=== PATIENT | male | born 2000 | race American Indian/Alaskan Native ===

== ENCOUNTER 2020-06-14 14:27 | Emergency (ER) | payer MEDICAID ==
[2020-06-14 17:01] LABS: Basophils % (Auto) 0.6 % (0.0-1.8); Eosinophils # (Auto) 0.1 K/mm3 (0.0-0.4); Eosinophils % (Auto) 0.8 % (0.0-4.3); Hematocrit 44.3 % (35.5-45.6); Hemoglobin 14.2 gm/dl (11.8-15.2); Lymphocytes # (Auto) 1.8 K/mm3 (1.2-5.4); Lymphocytes % (Auto) 29.4 % (13.4-35.0); Mean Corpuscular HGB Conc 32 % (32-34); Mean Corpuscular Volume 92 fl (84-94); Monocytes # (Auto) 0.4 K/mm3 (0.0-0.8); Platelet Count 284 K/mm3 (140-440); Red Blood Count 4.84 M/mm3 (3.65-5.03); Red Cell Distribution Width 14.4 % (13.2-15.2)
[2020-06-14 17:18] LABS: BUN/Creatinine Ratio 19; Blood Urea Nitrogen 17 mg/dL (9-20); Calcium 9.7 mg/dL (8.4-10.2); Hemolysis Index 7
--- NOTE | 2020-06-14 18:02 | Emergency Department Report ---
ED Psych HPI - General Chief Complaint: Medical Clearance Stated Complaint: AMS Time Seen by Provider: 06/14/20 16:27 Source: patient Mode of arrival: Ambulatory Limitations: Other (Patient refusing to speak ) - History of Present Illness Initial Comments: 20-year-old male with a past medical history of ADHD is brought in by family for nonverbal for the past 2 months which has "gotten progressively worse". Patient would not answer any of my questions and will not make eye contact. Patient does not even nod in response to yes or no questions - Related Data Previous Rx's Medication Instructions Recorded Last Taken Type risperiDONE [Risperdal] 2 mg PO BID 30 Days #60 tablet 06/19/20 Unknown Rx Allergies Allergy/AdvReac Type Severity Reaction Status Date / Time No Known Allergies Allergy Verified 11/22/13 16:50 ED Review of Systems ROS: Stated complaint: AMS Other details as noted in HPI Comment: All other systems reviewed and negative ED Past Medical Hx - Past Medical History Previous Medical History?: Yes Additional medical history: ADHD - Surgical History Past Surgical History?: Yes Additional Surgical History: Surgery on lymph node in neck - Social History Smoking Status: Unknown if ever smoked Substance Use Type: None - Medications Home Medications: Home Medications Medication Instructions Recorded Confirmed Last Taken Type risperiDONE [Risperdal] 2 mg PO BID 30 Days #60 tablet 06/19/20 Unknown Rx ED Physical Exam - General Limitations: No Limitations - Other Other exam information: General: No acute distress Head: Atraumatic Eyes: normal appearance ENT: Moist mucous membranes Neck: Normal appearance, no midline tenderness Chest: Clear to auscultation bilaterally CV: Regular rate and rhythm Abdomen: Soft, normal bowel sounds, nontender, nondistended, no rebound or guarding Back: Normal inspection Extremity: Normal inspection, full range of motion Neuro: Alert O x 3, no facial asymmetry, refusing to speak no gross motor sensory deficit Psych: Cooperative, poor eye contact Skin: No rash ED Course Vital Signs 06/14/20 06/14/20 06/14/20 15:15 16:03 19:30 Temperature 98.8 F Pulse Rate 71 Respiratory 16 16 18 Rate Blood Pressure 140/92 Blood Pressure [Left] O2 Sat by Pulse 100 100 Oximetry 06/14/20 06/15/20 06/15/20 20:20 02:18 16:00 Temperature 97.9 F Pulse Rate 75 81 96 H Respiratory 16 18 20 Rate Blood Pressure Blood Pressure 150/104 138/88 142/89 [Left] O2 Sat by Pulse 100 100 98 Oximetry 06/15/20 06/16/20 06/16/20 19:15 02:10 20:00 Temperature 98.9 F 97.5 F L Pulse Rate 97 H 88 Respiratory 18 16 18 Rate Blood Pressure Blood Pressure 134/78 126/74 [Left] O2 Sat by Pulse 98 98 95 Oximetry 06/16/20 06/16/20 06/16/20 20:15 21:30 21:45 Temperature 98.5 F Pulse Rate 131 H 104 H 94 H Respiratory 18 20 19 Rate Blood Pressure 132/103 142/99 Blood Pressure 151/106 [Left] O2 Sat by Pulse 100 Oximetry 06/16/20 06/16/20 06/16/20 22:00 22:16 22:30 Temperature Pulse Rate 93 H 89 100 H Respiratory 18 16 16 Rate Blood Pressure 134/90 134/90 134/90 Blood Pressure [Left] O2 Sat by Pulse 99 100 Oximetry 06/16/20 06/16/20 06/16/20 22:32 22:45 22:58 Temperature Pulse Rate 88 93 H 92 H Respiratory 17 13 19 Rate Blood Pressure 141/90 Blood Pressure [Left] O2 Sat by Pulse 100 100 100 Oximetry 06/16/20 06/16/20 06/16/20 23:00 23:05 23:15 Temperature Pulse Rate 90 93 H 89 Respiratory 17 18 17 Rate Blood Pressure 129/95 129/95 125/93 Blood Pressure [Left] O2 Sat by Pulse 100 100 100 Oximetry 06/16/20 06/16/20 06/17/20 23:30 23:45 00:00 Temperature Pulse Rate 84 83 103 H Respiratory 18 17 15 Rate Blood Pressure 134/91 145/106 145/106 Blood Pressure [Left] O2 Sat by Pulse 100 100 100 Oximetry 06/17/20 06/17/20 06/17/20 00:15 00:30 00:46 Temperature Pulse Rate 84 91 H 75 Respiratory 15 17 13 Rate Blood Pressure 138/90 134/99 168/97 Blood Pressure [Left] O2 Sat by Pulse 100 97 100 Oximetry 06/17/20 06/17/20 06/17/20 01:00 01:15 01:30 Temperature Pulse Rate 81 77 86 Respiratory 15 16 17 Rate Blood Pressure 131/89 108/57 139/88 Blood Pressure [Left] O2 Sat by Pulse 100 100 100 Oximetry 06/17/20 06/17/20 06/17/20 01:45 02:00 02:15 Temperature Pulse Rate 79 79 78 Respiratory 17 17 15 Rate Blood Pressure 124/85 121/79 123/80 Blood Pressure [Left] O2 Sat by Pulse 100 100 100 Oximetry 06/17/20 06/17/20 06/17/20 02:30 02:45 02:54 Temperature 97.5 F L Pulse Rate 77 83 100 H Respiratory 16 10 L 16 Rate Blood Pressure 122/83 140/100 Blood Pressure 130/70 [Left] O2 Sat by Pulse 100 100 100 Oximetry 06/17/20 06/17/20 06/17/20 08:50 08:52 10:22 Temperature 97.3 F L Pulse Rate 87 Respiratory 19 18 Rate Blood Pressure Blood Pressure 147/100 [Left] O2 Sat by Pulse 99 98 Oximetry 06/17/20 06/17/20 06/17/20 13:21 17:42 19:24 Temperature 98.8 F 97.5 F L 98 F Pulse Rate 88 109 H 78 Respiratory 16 19 16 Rate Blood Pressure Blood Pressure 138/96 98/70 100/72 [Left] O2 Sat by Pulse 99 96 97 Oximetry 06/18/20 06/18/20 06/18/20 05:50 09:31 19:50 Temperature 98.2 F 98.8 F 98.1 F Pulse Rate 76 97 H 98 H Respiratory 14 19 20 Rate Blood Pressure Blood Pressure 100/76 138/101 144/88 [Left] O2 Sat by Pulse 99 97 Oximetry 06/19/20 06/19/20 01:10 09:20 Temperature 98.8 F 97.3 F L Pulse Rate 84 85 Respiratory 20 18 Rate Blood Pressure Blood Pressure 130/94 146/98 [Left] O2 Sat by Pulse 99 100 Oximetry - Reevaluation(s) Reevaluation #1: 06/15/20 00:55 Urine collection pending ED Medical Decision Making - Lab Data Result diagrams: 06/16/20 22:33 06/16/20 22:33 Lab Results 06/14/20 06/14/20 06/14/20 Range/Units 16:38 16:38 16:38 WBC (4.5-11.0) K/mm3 RBC (3.65-5.03) M/mm3 Hgb (11.8-15.2) gm/dl Hct (35.5-45.6) % MCV (84-94) fl MCH (28-32) pg MCHC (32-34) % RDW (13.2-15.2) % Plt Count (140-440) K/mm3 Lymph % (Auto) (13.4-35.0) % Wright % (Auto) (0.0-7.3) % Eos % (Auto) (0.0-4.3) % Baso % (Auto) (0.0-1.8) % Lymph # (Auto) (1.2-5.4) K/mm3 Wright # (Auto) (0.0-0.8) K/mm3 Eos # (Auto) (0.0-0.4) K/mm3 Baso # (Auto) (0.0-0.1) K/mm3 Seg Neutrophils % (40.0-70.0) % Seg Neutrophils # (1.8-7.7) K/mm3 Sodium 138 (137-145) mmol/L Potassium 4.4 (3.6-5.0) mmol/L Chloride 103.3 (98-107) mmol/L Carbon Dioxide 25 (22-30) mmol/L Anion Gap 14 mmol/L BUN 17 (9-20) mg/dL Creatinine 0.9 (0.8-1.3) mg/dL Estimated GFR > 60 ml/min BUN/Creatinine Ratio 19 % Glucose 88 (75-100) mg/dL Calcium 9.7 (8.4-10.2) mg/dL Salicylates < 0.3 L (2.8-20.0) mg/dL Acetaminophen 5.0 L (10.0-30.0) ug/mL Plasma/Serum Alcohol (0-0.07) % 06/14/20 06/14/20 Range/Units 16:38 16:38 WBC 6.2 (4.5-11.0) K/mm3 RBC 4.84 (3.65-5.03) M/mm3 Hgb 14.2 (11.8-15.2) gm/dl Hct 44.3 (35.5-45.6) % MCV 92 (84-94) fl MCH 29 (28-32) pg MCHC 32 (32-34) % RDW 14.4 (13.2-15.2) % Plt Count 284 (140-440) K/mm3 Lymph % (Auto) 29.4 (13.4-35.0) % Wright % (Auto) 7.0 (0.0-7.3) % Eos % (Auto) 0.8 (0.0-4.3) % Baso % (Auto) 0.6 (0.0-1.8) % Lymph # (Auto) 1.8 (1.2-5.4) K/mm3 Wright # (Auto) 0.4 (0.0-0.8) K/mm3 Eos # (Auto) 0.1 (0.0-0.4) K/mm3 Baso # (Auto) 0.0 (0.0-0.1) K/mm3 Seg Neutrophils % 62.2 (40.0-70.0) % Seg Neutrophils # 3.8 (1.8-7.7) K/mm3 Sodium (137-145) mmol/L Potassium (3.6-5.0) mmol/L Chloride (98-107) mmol/L Carbon Dioxide (22-30) mmol/L Anion Gap mmol/L BUN (9-20) mg/dL Creatinine (0.8-1.3) mg/dL Estimated GFR ml/min BUN/Creatinine Ratio % Glucose (75-100) mg/dL Calcium (8.4-10.2) mg/dL Salicylates (2.8-20.0) mg/dL Acetaminophen (10.0-30.0) ug/mL Plasma/Serum Alcohol < 0.01 (0-0.07) % - Radiology Data Radiology results: report reviewed CT neck wo con INDICATION / CLINICAL INFORMATION: 20 years Male; NOT SPEAKING, DROOLING, Psych. TECHNIQUE: Contiguous thin cut axial images obtained through the neck. Sagittal and coronal reconstructions performed by the technologist. All CT scans at this location are performed using CT dose reduction for ALARA by means of automated exposure control. COMPARISON: None available. FINDINGS: Very little subcutaneous or deep tissue fat is seen, making visualization of structures without IV contrast difficult. MUCOSAL SPACE: Prominent soft tissue is seen in the roof the nasopharynx, presumably related to reactive adenoidal tissue. Please clinically correlate. Otherwise, the nasopharynx, oropharynx and vallecula, oral cavity and floor of mouth, hypopharynx, and larynx are grossly normal. The epiglottis is appearance. LYMPH NODES: No significant adenopathy appreciated. Presumed calcified lymph node in the left retropharyngeal space nasal/oropharyngeal region. Similar, smaller finding seen on the right. SALIVARY GLANDS: Parotid, submandibular, and visualized sublingual glands are within normal limits. There is no evidence of sialolith. THYROID GLAND: Unremarkable. PARANASAL SINUSES: Small mucous cyst is seen in the left sphenoid sinus. SPINE: No significant abnormality of the cervical spine appreciated. VASCULAR STRUCTURES: Vascular structures are grossly normal in appearance. ADDITIONAL FINDINGS: Surrounding soft tissues are otherwise grossly normal. IMPRESSION: 1. No definitive cause for patient's pathology appreciated. - Medical Decision Making 20-year male presents to the hospital refusing to speak, poor eye contact, intermittent drooling. Labs unremarkable. CT neck does not show any acute pathology. Suspect that symptoms are related to psychosis and underlying psychiatric disorder. 1013 has been signed. 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 Critical Care Time: No Critical care attestation.: If time is entered above; I have spent that time in minutes in the direct care of this critically ill patient, excluding procedure time. ED Disposition Clinical Impression: Medical clearance for psychiatric admission, Schizophrenia Disposition: [id number] PSY HOSP/PSY UNIT Is pt being admited?: No Condition: Stable Additional Instructions: Outpatient [facility] Behavioral Health Resources: [facility] ([facility]) [address] [place] [address] / Wednesday thru Wednesday - 8am - 5pm [facility] Address: [address] [place] [address] Wednesday thru Wednesday- 7am-2pm [facility] Address: [address] [place] [address] Wednesday thru Wednesday: 8:30AM-5PM CRISIS RESOURCES [place] Crisis Line: Suicide Prevention Line: Crisis Text Line: Text START to [phone] Emergency: 911 In case of an emergency, please contact the following numbers: [place] Crisis and Access Line: Number: Crisis Text Line: (Text START) Number: [phone] Suicide Prevention Line: Number: Emergency Number: 911 SUBSTANCE ABUSE PROGRAMS: [facility]: Location: [place], [place] [facility] Address: [address] [place] [address] [facility]: Address: [address] [facility] [place] [address] [facility]: Address: [address] [place] [address] [facility]: Address: [address] [place] [address] [facility] Address: [address] [place] [address]. Please contact above numbers to attempt placement into free based program. Medicaid Programs: [facility]: Address: [address] [place] [address] [facility]: Address: [address] [place] [id number] Prescriptions: risperiDONE [Risperdal] 2 mg PO BID 30 Days #60 tablet Referrals: PRIMARY CARE, [Primary Care Provider] - 3-5 Days
[2020-06-14] MEDS ORDERED: ZIPRASIDONE MESYLATE 20 MG VIAL IM ONE (19:12)
--- NOTE | 2020-06-15 00:40 | Cat Scan Report ---
CT neck wo con INDICATION / CLINICAL INFORMATION: 20 years Male; NOT SPEAKING, DROOLING, Psych. TECHNIQUE: Contiguous thin cut axial images obtained through the neck. Sagittal and coronal reconstructions perf ormed by the technologist. All CT scans at this location are performed using CT dose reduction for [place] SUMMER by means of automated exposure control. COMPARISON: None available. FINDINGS: Very little subcutaneous or deep tissue fat is seen, making visualization of structures wit hout IV contrast difficult. MUCOSAL SPACE: Prominent soft tissue is seen in the roof the nasopharynx, presumably related to react slava adenoidal tissue. Please clinically correlate. Otherwise, the nasopharynx, oropharynx and vallec kya, oral cavity and floor of mouth, hypopharynx, and larynx are grossly normal. The epiglottis is ap pearance. LYMPH NODES: No significant adenopathy appreciated. Presumed calcified lymph node in the left retroph aryngeal space nasal/oropharyngeal region. Similar, smaller finding seen on the right. SALIVARY GLANDS: Parotid, submandibular, and visualized sublingual glands are within normal limits. T here is no evidence of sialolith. THYROID GLAND: Unremarkable. PARANASAL SINUSES: Small mucous cyst is seen in the left sphenoid sinus. SPINE: No significant abnormality of the cervical spine appreciated. VASCULAR STRUCTURES: Vascular structures are grossly normal in appearance. ADDITIONAL FINDINGS: Surrounding soft tissues are otherwise grossly normal. IMPRESSION: 1. No definitive cause for patient's pathology appreciated. Signer Name: Yong Mcgowan MD, III Signed: 06/15/2020 12:35 AM Workstation Name: [employer]
--- NOTE | 2020-06-15 10:29 | Consultation ---
History of Present Illness - Reason for Consult Consult date: 06/15/20 Reason for consult: MHE Requesting physician: TATA GARCIA - History of Present Psychiatric Illness Per ED Provider: 20-year-old male with a past medical history of ADHD is brought in by family for nonverbal for the past 2 months which has "gotten progressively worse". Patient would not answer any of my questions and will not make eye contact. Patient does not even nod in response to yes or no questions Per MHA: Received mental health consult order from Dr. Garcia to assess pt. Dr. Garcia placed pt on 1013 on 06/14/2020 17:48. Unable to complete mental health assessment with pt as pt is non verbal; noted by nurse to, "have drooled all over self and the floor." Noted in Dr. Garcia's report that the pt , "does not even nod in response to yes or no questions." Attempted to call pt's mother listed under emergency contact in chart for collateral information; no answer; voicemail is full. Per the report from EMS, pt only medical history is ADHD, but pt began to be non verbal 2 months ago. Attempted to ask the pt his name, his mother's name and other basic questions. 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 PSYCH HPI Patient is a 20-year-old -[place] male who was brought in by family due to progressively worsening behavior, flat affect and nonverbal status. Family report patient has history of ADHD. Patient was seen in room 16, attempts to talk to patient was negative, patient was flat, non mobile and stared constantly into the ceiling. REVIEW OF SYSTEMS ROS cannot be reliably obtained from the patient due to his current status MENTAL STATUS EXAMINATION General Appearance and Behavior: Age appropriate, good hygiene, wearing appropriate clothes, no eye contact, uncooperative Cooperation: Withdrawn Psychomotor Behavior: unremarkable and within normal limits Mood: n/a Affect and affective range: Flat Thought Process: N/A Thought Content: N/A Speech: n/a Intellectual Functioning: N/A Suicidal Ideation: N/A l Homicidal Ideation: N/A Impulse Control: Impaired Insight and Judgment: Impaired Memory: N/A Attention: n/a Orientation: Alert Diagnoses: Assessment and Plan - Psychiatric problem (1) 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 PSYCHOTHERAPY: Supportive psychotherapy provided MEDICAL: Per primary team DELIRIUM PRECAUTIONS: Please re-orient patient frequently, keep lights on during the day, and minimize benzodiazepines and opiates as these medications could worsen patient's confusion. 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 Please contact with any questions and/or concerns. Medications and Allergies Allergies Allergy/AdvReac Type Severity Reaction Status Date / Time No Known Allergies Allergy Verified 11/22/13 16:50 Home Medications Medication Instructions Recorded Confirmed Last Taken Type No Known Home Medications [No 11/20/13 11/20/13 Unknown History Reported Home Medications] Mental Status Exam - Vital signs Last Vital Signs Temp 97.9 F 06/15/20 02:18 Pulse 81 06/15/20 02:18 Resp 18 06/15/20 02:18 BP 138/88 06/15/20 02:18 Pulse Ox 100 06/15/20 02:18 Results Result Diagrams: 06/14/20 16:38 06/14/20 16:38 Abnormal lab results 06/14/20 06/14/20 Range/Units 16:38 16:38 Salicylates < 0.3 L (2.8-20.0) mg/dL Acetaminophen 5.0 L (10.0-30.0) ug/mL All other labs normal. 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
[2020-06-15] MEDS: LORazepam 2 MG/ML VIAL IM SCH ×4 (13:30→22:36)
[2020-06-15 16:02] LABS: Amphetamine Screen,Urine Negative; Benzodiazepines Screen,Urine Negative; Cocaine Screen,Urine Negative; Methadone Screen,Urine Negative; Opiate Screen,Urine Negative
[2020-06-15 16:14] LABS: Cannabinoid Screen,Urine Positive
[2020-06-15 16:18] LABS: Bilirubin,Urine NEG (Negative); Blood,Urine NEG (Negative); Color,Urine Yellow (Yellow); Mucus,Urine 3+ /HPF; Protein,Urine <15 mg/dL mg/dL (Negative); Urobilinogen,Urine < 2.0 mg/dL (<2.0)
[2020-06-15] MEDS ORDERED: ZIPRASIDONE MESYLATE 20 MG VIAL IM SCH (22:00)
--- NOTE | 2020-06-16 10:47 | Progress Note ---
Subjective - Reason for Consult Consult date: 06/16/20 Reason for consult: MHE Requesting physician: TATA BROWN - Chief Complaint Chief complaint: ED Nurse: [id number] As I entered the room, pt sat up and asked to go to restroom, pt escorted to restroom and security notified of stand by assist, as pt was being escorted back to room, pt ran out of back bay door, staff unable to catch him, [employer] notified at this time. Psych Progress Patient in room this AM, not communicating, remains flat, mute and withdrawn to self. REVIEW OF SYSTEMS ROS cannot be reliably obtained from the patient due to his current status MENTAL STATUS EXAMINATION General Appearance and Behavior: Age appropriate, good hygiene, wearing appropriate clothes, no eye contact, uncooperative Cooperation: Withdrawn Psychomotor Behavior: unremarkable and within normal limits Mood: n/a Affect and affective range: Flat Thought Process: N/A Thought Content: N/A Speech: n/a Intellectual Functioning: N/A Suicidal Ideation: N/A l Homicidal Ideation: N/A Impulse Control: Impaired Insight and Judgment: Impaired Memory: N/A Attention: n/a Orientation: Alert Diagnoses: Assessment and Plan - Psychiatric problem (1) 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 PSYCHOTHERAPY: Supportive psychotherapy provided MEDICAL: Per primary team DELIRIUM PRECAUTIONS: Please re-orient patient frequently, keep lights on during the day, and minimize benzodiazepines and opiates as these medications could worsen patient's confusion. 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 Please contact with any questions and/or concerns. 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
[2020-06-16] MEDS: LORazepam 2 MG/ML VIAL IM SCH ×3 (12:18→20:51)
[2020-06-16] MEDS ORDERED: SODIUM CHLORIDE 0.9% 1000 ML 2,000 ML IV ONE (20:54)
[2020-06-16] MEDS ORDERED: diphenhydrAMINE 50 MG/ML VIAL IV ONE (20:54)
[2020-06-16] MEDS ORDERED: LORazepam 2 MG/ML VIAL IV STA (20:54)
--- NOTE | 2020-06-16 20:55 | Event Note ---
Date: 06/16/20 The patient was evaluated in the emergency department for symptoms described in the history of present illness. He/she was evaluated in the context of the global COVID-19 pandemic, which necessitated consideration that the patient might be at risk for infection with the virus that causes COVID-19. Institutional protocols and algorithms that pertain to the evaluation of patients at risk for COVID-19 are in a state of rapid change based on information released by regulatory bodies including the CDC and federal and state organizations. These policies and algorithms were followed during the patient's care in the emergency department. Please note that these policies, procedures and recommendations changed on a rapid basis. Please note this patient was not signed out to myself. The nursing team brought this patient to my attention because he was tachycardic. I went to evaluate the patient, with complete personal protective equipment on. He is awake, breathing spontaneously, but appears to be acutely psychotic. He does not appear to be in a significant respiratory distress. He was given a trial of ambulation, heart rate remained tachycardic, O2 sat 93 to 98%. Currently resting comfortably, saturating 100% on room air. Heart rate now 100 bpm. Patient appears to be acutely psychotic, and therefore does not exhibit decision-making capacity. I counseled the patient that we would recommend x-ray of the chest, and appropriate laboratory studies. The patient was not agreeable. Given that he does not have decision-making capacity, and requires further evaluation, he will be placed on a classroom monitor, x-ray of the chest, laboratory studies will be obtained, he will be given IV fluids, and we will obtain appropriate laboratory studies. At this point time, EKG shows a sinus rhythm, tachycardia, 103 bpm, QTC 431 ms, normal axis, high left ventricular voltage, atrial enlargement. Not a STEMI. S1, S2, tachycardic. Breath sounds clear to auscultation bilaterally. Abdomen soft and benign, without any rebound, guarding or peritoneal signs. Head normocephalic atraumatic. There is no stridor. There are no meningeal signs. There is no facial droop. Walking with a steady gait. 2+ pulses noted in the bilateral upper and lower extremities. There is no palpable cord. negative Homans sign. Muscular compartments are soft. The pelvis is stable. 5 strength in 4 extremities. No obvious facial droop. Extractor movements are intact. Detailed neurologic examination not possible secondary to acute psych osis. 06/16/2020. 11: 50 Pm Patient resting comfortably in his stretcher and in no acute distress. Laboratory studies reviewed and appreciated. X-ray of the chest unremarkable. Elevated CK will decrease with rest, and with IV fluids. Saturating at 99/100% on room air. No desaturations noted. Covid test ordered. We will maintain isolation precautions. However, patient does not appear to have an emergent medical condition present at this time which would require hospitalization. We will maintain isolation precautions pending Covid testing. Vital Signs 06/14/20 06/14/20 06/14/20 15:15 16:03 19:30 Temperature 98.8 F Pulse Rate 71 Respiratory 16 16 18 Rate Blood Pressure 140/92 Blood Pressure [Left] O2 Sat by Pulse 100 100 Oximetry 06/14/20 06/15/20 06/15/20 20:20 02:18 16:00 Temperature 97.9 F Pulse Rate 75 81 96 H Respiratory 16 18 20 Rate Blood Pressure Blood Pressure 150/104 138/88 142/89 [Left] O2 Sat by Pulse 100 100 98 Oximetry 06/15/20 06/16/20 06/16/20 19:15 02:10 20:00 Temperature 98.9 F 97.5 F L Pulse Rate 97 H 88 Respiratory 18 16 18 Rate Blood Pressure Blood Pressure 134/78 126/74 [Left] O2 Sat by Pulse 98 98 95 Oximetry 06/16/20 06/16/20 06/16/20 20:15 21:30 21:45 Temperature 98.5 F Pulse Rate 131 H 104 H 94 H Respiratory 18 20 19 Rate Blood Pressure 132/103 142/99 Blood Pressure 151/106 [Left] O2 Sat by Pulse 100 Oximetry 06/16/20 06/16/20 06/16/20 22:00 22:16 22:30 Temperature Pulse Rate 93 H 89 100 H Respiratory 18 16 16 Rate Blood Pressure 134/90 134/90 134/90 Blood Pressure [Left] O2 Sat by Pulse 99 100 Oximetry 06/16/20 06/16/20 22:45 23:00 Temperature Pulse Rate 93 H 90 Respiratory 13 17 Rate Blood Pressure 141/90 129/95 Blood Pressure [Left] O2 Sat by Pulse 100 100 Oximetry Lab Results 12/11/20 12/11/20 12/11/20 Range/Units 16:38 16:38 16:38 WBC (4.5-11.0) K/mm3 RBC (3.65-5.03) M/mm3 Hgb (11.8-15.2) gm/dl Hct (35.5-45.6) % MCV (84-94) fl MCH (28-32) pg MCHC (32-34) % RDW (13.2-15.2) % Plt Count (140-440) K/mm3 Lymph % (Auto) (13.4-35.0) % [place] % (Auto) (0.0-7.3) % Eos % (Auto) (0.0-4.3) % Baso % (Auto) (0.0-1.8) % Lymph # (Auto) (1.2-5.4) K/mm3 [place] # (Auto) (0.0-0.8) K/mm3 Eos # (Auto) (0.0-0.4) K/mm3 Baso # (Auto) (0.0-0.1) K/mm3 Seg Neutrophils % (40.0-70.0) % Seg Neutrophils # (1.8-7.7) K/mm3 PT (12.2-14.9) Sec. INR (0.87-1.13) Sodium 138 (137-145) mmol/L Potassium 4.4 (3.6-5.0) mmol/L Chloride 103.3 (98-107) mmol/L Carbon Dioxide 25 (22-30) mmol/L Anion Gap 14 mmol/L BUN 17 (9-20) mg/dL Creatinine 0.9 (0.8-1.3) mg/dL Estimated GFR > 60 ml/min BUN/Creatinine Ratio 19 % Glucose 88 (75-100) mg/dL Calcium 9.7 (8.4-10.2) mg/dL Magnesium (1.7-2.3) mg/dL Total Creatine Kinase (55-170) units/L Urine Color (Yellow) Urine Turbidity (Clear) Urine pH (5.0-7.0) Ur Specific [place] (1.003-1.030) Urine Protein (Negative) mg/dL Urine Glucose (UA) (Negative) mg/dL Urine Ketones (Negative) mg/dL Urine Blood (Negative) Urine Nitrite (Negative) Urine Bilirubin (Negative) Urine Urobilinogen (<2.0) mg/dL Ur Leukocyte Esterase (Negative) Urine WBC (Auto) (0.0-6.0) /HPF Urine RBC (Auto) (0.0-6.0) /HPF Urine Mucus /HPF Salicylates < 0.3 L (2.8-20.0) mg/dL Urine Opiates Screen Urine Methadone Screen Acetaminophen 5.0 L (10.0-30.0) ug/mL Ur Barbiturates Screen Ur Phencyclidine Scrn Ur Amphetamines Screen U Benzodiazepines Scrn Urine Cocaine Screen U Marijuana (THC) Screen Drugs of Abuse Note Plasma/Serum Alcohol (0-0.07) % 06/14/20 06/14/20 06/15/20 Range/Units 16:38 16:38 15:45 WBC 6.2 (4.5-11.0) K/mm3 RBC 4.84 (3.65-5.03) M/mm3 Hgb 14.2 (11.8-15.2) gm/dl Hct 44.3 (35.5-45.6) % MCV 92 (84-94) fl MCH 29 (28-32) pg MCHC 32 (32-34) % RDW 14.4 (13.2-15.2) % Plt Count 284 (140-440) K/mm3 Lymph % (Auto) 29.4 (13.4-35.0) % [place] % (Auto) 7.0 (0.0-7.3) % Eos % (Auto) 0.8 (0.0-4.3) % Baso % (Auto) 0.6 (0.0-1.8) % Lymph # (Auto) 1.8 (1.2-5.4) K/mm3 [place] # (Auto) 0.4 (0.0-0.8) K/mm3 Eos # (Auto) 0.1 (0.0-0.4) K/mm3 Baso # (Auto) 0.0 (0.0-0.1) K/mm3 Seg Neutrophils % 62.2 (40.0-70.0) % Seg Neutrophils # 3.8 (1.8-7.7) K/mm3 PT (12.2-14.9) Sec. INR (0.87-1.13) Sodium (137-145) mmol/L Potassium (3.6-5.0) mmol/L Chloride (98-107) mmol/L Carbon Dioxide (22-30) mmol/L Anion Gap mmol/L BUN (9-20) mg/dL Creatinine (0.8-1.3) mg/dL Estimated GFR ml/min BUN/Creatinine Ratio % Glucose (75-100) mg/dL Calcium (8.4-10.2) mg/dL Magnesium (1.7-2.3) mg/dL Total Creatine Kinase (55-170) units/L Urine Color Yellow (Yellow) Urine Turbidity Clear (Clear) Urine pH 6.0 (5.0-7.0) Ur Specific [place] 1.027 (1.003-1.030) Urine Protein <15 mg/dl (Negative) mg/dL Urine Glucose (UA) Neg (Negative) mg/dL Urine Ketones 20 (Negative) mg/dL Urine Blood Neg (Negative) Urine Nitrite Neg (Negative) Urine Bilirubin Neg (Negative) Urine Urobilinogen < 2.0 (<2.0) mg/dL Ur Leukocyte Esterase Neg (Negative) Urine WBC (Auto) 2.0 (0.0-6.0) /HPF Urine RBC (Auto) 5.0 (0.0-6.0) /HPF Urine Mucus 3+ /HPF Salicylates (2.8-20.0) mg/dL Urine Opiates Screen Urine Methadone Screen Acetaminophen (10.0-30.0) ug/mL Ur Barbiturates Screen Ur Phencyclidine Scrn Ur Amphetamines Screen U Benzodiazepines Scrn Urine Cocaine Screen U Marijuana (THC) Screen Drugs of Abuse Note Plasma/Serum Alcohol < 0.01 (0-0.07) % 06/15/20 06/16/20 06/16/20 Range/Units 15:45 22:33 22:33 WBC 8.2 (4.5-11.0) K/mm3 RBC 5.21 H (3.65-5.03) M/mm3 Hgb 15.3 H (11.8-15.2) gm/dl Hct 46.7 H (35.5-45.6) % MCV 90 (84-94) fl MCH 29 (28-32) pg MCHC 33 (32-34) % RDW 14.0 (13.2-15.2) % Plt Count 206 (140-440) K/mm3 Lymph % (Auto) (13.4-35.0) % [place] % (Auto) (0.0-7.3) % Eos % (Auto) (0.0-4.3) % Baso % (Auto) (0.0-1.8) % Lymph # (Auto) (1.2-5.4) K/mm3 [place] # (Auto) (0.0-0.8) K/mm3 Eos # (Auto) (0.0-0.4) K/mm3 Baso # (Auto) (0.0-0.1) K/mm3 Seg Neutrophils % (40.0-70.0) % Seg Neutrophils # (1.8-7.7) K/mm3 PT 13.8 (12.2-14.9) Sec. INR 1.07 (0.87-1.13) Sodium (137-145) mmol/L Potassium (3.6-5.0) mmol/L Chloride (98-107) mmol/L Carbon Dioxide (22-30) mmol/L Anion Gap mmol/L BUN (9-20) mg/dL Creatinine (0.8-1.3) mg/dL Estimated GFR ml/min BUN/Creatinine Ratio % Glucose (75-100) mg/dL Calcium (8.4-10.2) mg/dL Magnesium (1.7-2.3) mg/dL Total Creatine Kinase (55-170) units/L Urine Color (Yellow) Urine Turbidity (Clear) Urine pH (5.0-7.0) Ur Specific [place] (1.003-1.030) Urine Protein (Negative) mg/dL Urine Glucose (UA) (Negative) mg/dL Urine Ketones (Negative) mg/dL Urine Blood (Negative) Urine Nitrite (Negative) Urine Bilirubin (Negative) Urine Urobilinogen (<2.0) mg/dL Ur Leukocyte Esterase (Negative) Urine WBC (Auto) (0.0-6.0) /HPF Urine RBC (Auto) (0.0-6.0) /HPF Urine Mucus /HPF Salicylates (2.8-20.0) mg/dL Urine Opiates Screen Negative Urine Methadone Screen Negative Acetaminophen (10.0-30.0) ug/mL Ur Barbiturates Screen Negative Ur Phencyclidine Scrn Negative Ur Amphetamines Screen Negative U Benzodiazepines Scrn Negative Urine Cocaine Screen Negative U Marijuana (THC) Screen Positive Drugs of Abuse Note Disclamer Plasma/Serum Alcohol (0-0.07) % 06/16/20 Range/Units 22:33 WBC (4.5-11.0) K/mm3 RBC (3.65-5.03) M/mm3 Hgb (11.8-15.2) gm/dl Hct (35.5-45.6) % MCV (84-94) fl MCH (28-32) pg MCHC (32-34) % RDW (13.2-15.2) % Plt Count (140-440) K/mm3 Lymph % (Auto) (13.4-35.0) % [place] % (Auto) (0.0-7.3) % Eos % (Auto) (0.0-4.3) % Baso % (Auto) (0.0-1.8) % Lymph # (Auto) (1.2-5.4) K/mm3 [place] # (Auto) (0.0-0.8) K/mm3 Eos # (Auto) (0.0-0.4) K/mm3 Baso # (Auto) (0.0-0.1) K/mm3 Seg Neutrophils % (40.0-70.0) % Seg Neutrophils # (1.8-7.7) K/mm3 PT (12.2-14.9) Sec. INR (0.87-1.13) Sodium 138 (137-145) mmol/L Potassium 3.8 (3.6-5.0) mmol/L Chloride 100.0 (98-107) mmol/L Carbon Dioxide 23 (22-30) mmol/L Anion Gap 19 mmol/L BUN 20 (9-20) mg/dL Creatinine 0.8 (0.8-1.3) mg/dL Estimated GFR > 60 ml/min BUN/Creatinine Ratio 25 % Glucose 95 (75-100) mg/dL Calcium 10.1 (8.4-10.2) mg/dL Magnesium 2.40 H (1.7-2.3) mg/dL Total Creatine Kinase 1948 H (55-170) units/L Urine Color (Yellow) Urine Turbidity (Clear) Urine pH (5.0-7.0) Ur Specific [place] (1.003-1.030) Urine Protein (Negative) mg/dL Urine Glucose (UA) (Negative) mg/dL Urine Ketones (Negative) mg/dL Urine Blood (Negative) Urine Nitrite (Negative) Urine Bilirubin (Negative) Urine Urobilinogen (<2.0) mg/dL Ur Leukocyte Esterase (Negative) Urine WBC (Auto) (0.0-6.0) /HPF Urine RBC (Auto) (0.0-6.0) /HPF Urine Mucus /HPF Salicylates (2.8-20.0) mg/dL Urine Opiates Screen Urine Methadone Screen Acetaminophen (10.0-30.0) ug/mL Ur Barbiturates Screen Ur Phencyclidine Scrn Ur Amphetamines Screen U Benzodiazepines Scrn Urine Cocaine Screen U Marijuana (THC) Screen Drugs of Abuse Note Plasma/Serum Alcohol (0-0.07) % X-ray of the chest is negative for acute findings
[2020-06-16] MEDS ORDERED: HALOPERIDOL LACTATE 5 MG/1 ML INJ IM PRN (21:53)
[2020-06-16] MEDS ORDERED: ZIPRASIDONE MESYLATE 20 MG VIAL IM SCH (22:00)
--- NOTE | 2020-06-16 22:42 | XRay Report ---
CHEST 1 VIEW, 06/16/2020 9:59 PM CLINICAL INFORMATION/INDICATION: Shortness of breath COMPARISON: None. FINDINGS: SUPPORT DEVICES: None. HEART: The cardiac silhouette is normal in size. LUNGS/PLEURA: The lungs are clear of focal airspace disease or significant pleural effusion ADDITIONAL FINDINGS: No additional acute findings. IMPRESSION: 1. No evidence of acute cardiopulmonary process. Signer Name: Adri Tyson MD Signed: 06/16/2020 10:37 PM Workstation Name: [id number]
[2020-06-16 22:47] LABS: Hematocrit 46.7 % (35.5-45.6); Hemoglobin 15.3 gm/dl (11.8-15.2); Mean Corpuscular HGB Conc 33 % (32-34); Mean Corpuscular Volume 90 fl (84-94); Red Blood Count 5.21 M/mm3 (3.65-5.03)
[2020-06-16 22:50] LABS: Platelet Count 206 K/mm3 (140-440)
[2020-06-16 23:05] LABS: BUN/Creatinine Ratio 25; Blood Urea Nitrogen 20 mg/dL (9-20); Calcium 10.1 mg/dL (8.4-10.2); Hemolysis Index 8
[2020-06-16 23:07] LABS: INR 1.07 (0.87-1.13)
[2020-06-17] MEDS: LORazepam 2 MG/ML VIAL IM PRN ×2 (04:44→13:58)
--- NOTE | 2020-06-17 10:20 | Progress Note ---
Subjective - Reason for Consult Consult date: 06/17/20 Reason for consult: MHE Requesting physician: ERINN THOMPSON - Chief Complaint Chief complaint: ED Nurse: [id number] As I entered the room, pt sat up and asked to go to restroom, pt escorted to restroom and security notified of stand by assist, as pt was being escorted back to room, pt ran out of back bay door, staff unable to catch him, [employer] notified at this time. Psych Progress Patient in room this AM, pacing about in room, speaks for first time, is alert and oriented to facility, knows he is at [facility]. Pt says he is good this morning, when asked why he is here, patient states he was told by [facility] [place] he would experience this in his ealry 20s and refused to comment further. REVIEW OF SYSTEMS ROS cannot be reliably obtained from the patient due to his current status MENTAL STATUS EXAMINATION General Appearance and Behavior: Age appropriate, good hygiene, wearing appropriate clothes, no eye contact, cooperative Cooperation: Withdrawn Psychomotor Behavior: unremarkable and within normal limits Mood: good Affect and affective range: Flat Thought Process: Preservative Thought Content: paranoid Speech: Low tone, regular rate and rythm Intellectual Functioning: average Suicidal Ideation: N/A Homicidal Ideation: N/A Impulse Control: Impaired Insight and Judgment: Impaired Memory: N/A Attention: distractible Orientation: Alert and oriented Diagnoses: Assessment and Plan - Psychiatric problem (1) 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 PSYCHOTHERAPY: Supportive psychotherapy provided MEDICAL: Per primary team DELIRIUM PRECAUTIONS: Please re-orient patient frequently, keep lights on during the day, and minimize benzodiazepines and opiates as these medications could worsen patient's confusion. LIEUTENANT BALLISTICS: DISPOSITION: Do Recommend acute inpatient psychiatric hospitalization at this time LEGAL STATUS: 1013 FOLLOW-UP: Will follow Thank you for the consult. Please contact with any questions and/or concerns. 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
[2020-06-17] MEDS: risperiDONE 1 MG TAB PO SCH ×2 (10:29→22:23)
[2020-06-17] MEDS ORDERED: risperiDONE 0.25 MG TAB PO SCH (11:00)
--- NOTE | 2020-06-18 10:22 | Progress Note ---
Subjective - Reason for Consult Consult date: 06/18/20 Reason for consult: MHE Requesting physician: TATA BROWN - Chief Complaint Chief complaint: ED Nurse: [id number] As I entered the room, pt sat up and asked to go to restroom, pt escorted to restroom and security notified of stand by assist, as pt was being escorted back to room, pt ran out of back bay door, staff unable to catch him, [employer] notified at this time. Psych Progress Patient in room this AM, appears somnolent, quiet and withdrawn to self. Patient states he knows where he lives he is alert and oriented to facility, patient reportedly feels weak and would like to speak with family, but he has not been allowed to use the phone. Nurse was redirected to patient's concerns, patient needs to be addressed. Patient asked why he is not eating, patient reported he is not hungry but later grabbed is food plates and ate. REVIEW OF SYSTEMS ROS cannot be reliably obtained from the patient due to his current status MENTAL STATUS EXAMINATION General Appearance and Behavior: Age appropriate, good hygiene, wearing appropriate clothes, no eye contact, cooperative Cooperation: Withdrawn Psychomotor Behavior: unremarkable and within normal limits Mood: good Affect and affective range: Flat Thought Process: Preservative Thought Content: paranoid Speech: Low tone, regular rate and rythm Intellectual Functioning: average Suicidal Ideation: N/A Homicidal Ideation: N/A Impulse Control: Impaired Insight and Judgment: Impaired Memory: N/A Attention: distractible Orientation: Alert and oriented Diagnoses: Assessment and Plan - Psychiatric problem (1) 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 PSYCHOTHERAPY: Supportive psychotherapy provided MEDICAL: Per primary team DELIRIUM PRECAUTIONS: Please re-orient patient frequently, keep lights on during the day, and minimize benzodiazepines and opiates as these medications could worsen patient's confusion. REGISTERED CLIENT ASSOCIATE: DISPOSITION: Do Recommend acute inpatient psychiatric hospitalization at this time LEGAL STATUS: 1013 FOLLOW-UP: Will follow Thank you for the consult. Please contact with any questions and/or concerns. 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
[2020-06-18] MEDS: risperiDONE 1 MG TAB PO SCH ×3 (16:08→22:17)
[2020-06-19 09:21] VITALS: BP 146/98
[2020-06-19] MEDS: risperiDONE 1 MG TAB PO SCH (11:00)
--- NOTE | 2020-06-19 11:04 | Progress Note ---
Subjective - Reason for Consult Consult date: 06/19/20 Reason for consult: MHE Requesting physician: JOANIE FRIEND - Chief Complaint Chief complaint: Psych Progress Patient in room this AM, appears somnolent, quiet and withdrawn to self. Patient states he knows where he lives he is alert and oriented to facility, patient reportedly feels weak and would like to speak with family, but he has not been allowed to use the phone. Nurse was redirected to patient's concerns, patient needs to be addressed. Patient asked why he is not eating, patient reported he is not hungry but later grabbed is food plates and ate. REVIEW OF SYSTEMS ROS cannot be reliably obtained from the patient due to his current status MENTAL STATUS EXAMINATION General Appearance and Behavior: Age appropriate, good hygiene, wearing appropriate clothes, no eye contact, cooperative Cooperation: Withdrawn Psychomotor Behavior: unremarkable and within normal limits Mood: good Affect and affective range: Flat Thought Process: Preservative Thought Content: paranoid Speech: Low tone, regular rate and rythm Intellectual Functioning: average Suicidal Ideation: N/A Homicidal Ideation: N/A Impulse Control: Impaired Insight and Judgment: Impaired Memory: N/A Attention: distractible Orientation: Alert and oriented Diagnoses: Assessment and Plan - Psychiatric problem (1) 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 Continue medications MEDICATIONS: Risks, benefits and alternatives of medications discussed with the patient, questions answered and consent obtained from patient. PSYCHOTHERAPY: Supportive psychotherapy provided MEDICAL: Per primary team DELIRIUM PRECAUTIONS: Please re-orient patient frequently, keep lights on during the day, and minimize benzodiazepines and opiates as these medications could worsen patient's confusion. SAIL REPAIR PERSON: DISPOSITION: Do Not Recommend acute inpatient psychiatric hospitalization at this time LEGAL STATUS: 1013 rescinded FOLLOW-UP: Will sign off Thank you for the consult. Please contact with any questions and/or concerns. 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
[2020-06-19] MEDS ORDERED: risperiDONE 1 MG TAB PO SCH (12:00)
== END 2020-06-19 16:00 ==
LOC: ED 14:27
DX: F29 Unspecified psychosis not due to a substance or known physiological condition (principal); Z04.6 Encounter for general psychiatric examination, requested by authority; F90.9 Attention-deficit hyperactivity disorder, unspecified type; Z98.890 Other specified postprocedural states
CPT/HCPCS: 36415; 70490; 71045; 80048; 80307; 81001; 82550; 83735; 85025; 85027; 85610; 96361; 96372; 96374; 99285; J1200; J1630; J2060; J3486; J7030; U0003; 80320; G0480